=== PATIENT | female | born 1980 | race Caucasian/White ===

== ENCOUNTER 2016-08-28 06:38 | Day surgery (SDC) | payer OTHER ==
[~2016-08-28 06:38] MED LIST: LOESTRIN FE 1-1 EACH PO; MACRODANTIN50 MG; PRENATAL1 TAB
[2016-08-28 07:28] LABS: HCT-HEMATOCRIT 39.7 % (34.0-49.0); HGB-HEMOGLOBIN 13.4 gm/dl (12.0-15.5); MCV (MEAN CELL VOLUME) 83.9 fl (82.0-96.0); RED CELL DISTRIBUTION WIDTH 12.6 % (12.4-16.4)
== END 2016-08-28 10:30 ==
LOC: SHSB 06:38 → ORE 08:47
PROVIDERS: Anesthesiology
PROC: 0WB60ZZ Excision of Neck, Open Approach (ICD-10-PCS; principal; 2016-08-28)
DX: Q18.0 Sinus, fistula and cyst of branchial cleft (principal); J32.9 Chronic sinusitis, unspecified; L70.9 Acne, unspecified; L30.9 Dermatitis, unspecified; L72.0 Epidermal cyst; R31.9 Hematuria, unspecified; R87.619 Unspecified abnormal cytological findings in specimens from cervix uteri; Z88.9 Allergy status to unspecified drugs, medicaments and biological substances; Z88.2 Allergy status to sulfonamides; Z79.899 Other long term (current) drug therapy